=== PATIENT | female | born 1980 | race Caucasian/White ===

== ENCOUNTER 2023-11-18 08:53 | Outpatient (AMB) | payer OTHER, SELFPAY ==
--- NOTE | 2023-11-18 08:56 | A.OFFPC_ITS ---
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 HTN. Hasn't had a primary care in 20 years. Hip Hop Performers Required: No Is last menstrual period known: Yes Last menstrual period: 11/11/23 Allergies amoxicillin Allergy (Severe, Verified 11/18/23 09:02) Rash Medication List - Last Reconciled 11/18/23 by Zainab Valadez PA-C drospirenone-ethinyl estradiol 3-0.02 mg (Lynette (28)) 1 tab PO DAILY Tobacco use date assessed: 11/18/23 Dental Screening Dental Screen Date: 11/18/23 Did you have a dental visit in the last 12 months?: Yes Did you have a dental problem in the last 6 months where you did not have access to dental care?: No Was dental information given to patient?: Patient has dentist 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 She says that she has not had a PCP in over 20 years. She has a history of anxiety, depression, and seasonal allergies She made this appointment because she has been feeling lightheaded on and off for the last year. It will last for about 15 minutes. She states it gets better with juice box and laying down. It happens 1-2 x a month. She states when it happens it she feels off for the rest of the day. She will get associated palpitations with it and feel like her blood pressure is elevated. They checked a few times at work and she states it was about 130/90. She does not get any chest pain with it but just does not feel well. She believes that she is well hydrated and she eats relatively healthy but does state that she has body dysmo rphic disorder and does like to monitor her food. She denies any known history of anemia and does still get regular periods. She has not noticed that the dizziness is related to any sort of hormonal changes or related to any foods. She states that she has been having a ton of anxiety lately, especially at work and wonders if this is a trigger. Pysch: She states she has been on and off medications for 17 years but nothing in the last 15 years. She states she was definitely on zoloft and was maxed out and felt numb. She has been experiencing a hard time controlling her thoughts. She is tearful today and states that she can not even enjoy her engagement because she does not want to plan the wedding with all of her worry and anxiety. She has a hard time falling asleep. 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 States that this has done last year. Family history: Does not know a lot but believes mother had endometrial, u terine or ovarian cancer. [facility] Medical History (Updated 11/18/23 @ 12:45 by Zainab Valadez PA-C) Anemia Skin cancer Depression Anxiety Migraines Asthma Family History (Updated 11/18/23 @ 09:12 by Ellie Sanders CMA) Father HTN (hypertension) Hypercholesteremia Paternal Grandmother HTN (hypertension) Paternal Grandfather HTN (hypertension) Hypercholesteremia Maternal Grandmother Skin cancer Social History (Updated 11/18/23 @ 08:57 by Ellie Sanders CMA) Housing: House Patient Tobacco Use Status: Former Tobacco user Cigarette Packs Per Day: 0.25 Years Smoked: 4 e-Cigarette/Vaping Use: Never Used Second Hand Smoke Exposure: No service: No Current occupational status: employed 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 1. Little interest or pleasure in doing things: more than half the days 2. Feeling down, depressed, or hopeless: more than half the days 3. Trouble falling or staying asleep, or sleeping too much: more than half the days 4. Feeling tired or having little energy: more than half the days 5. Poor appetite or overeating: more than half the days 6. Feeling bad about yourself - or that you are a failure or have let yourself or your family down: nearly every day 7. Trouble concentrating on things, such as reading the newspaper or watching television: more than half the days 8. Moving or speaking so slowly that other people could have noticed. Or the opposite - being so fidgety or restless that you have been moving around a lot more than usual: several days 9. Thoughts that you would be better off or of hurting yourself in some way: more than half the days Total score: 18 Depression Screening Interpretation: Positive Depression Screening Follow-up: Existing condition, New Medication prescribed and Follow-up Visit Requested Depression Screening Done: Yes 10664 - PHQ-9 Billing: Yes Source: Developed by Drs. Masoud Dubon, Aura Nieto, Dhiraj Lui and colleagues, with an educational franck from [employer]. Thrive Questionnaire Date Thrive assessed: 11/18/23 I am a: Patient What is your living situation today?: I have a steady place to live Within the past 12 months, did the food you bought not last and you didn't have the money to get more?: Never true Within the past 12 months, did you worry whether your food would run out before you got money to buy more?: Never true Do you have trouble paying for medicines?: No Do you have trouble getting transportation to medical appointments?: No Do you have trouble paying your heating and electricity bill?: No Do you have trouble taking care of your child, family member or friend?: No Do you have trouble with day-to-day activities such as bathing, preparing meals, shopping, managing finances, etc.?: No Are you currently unemployed and looking for a job?: No Are you interested in more education?: No Please select the resources that you would like help with: None Currently or been in a relationship where the following occur: No concerns reported THRIVE Score: 0 AUDIT C Alcohol Use Questionnaire (AUDIT-C) 1. How often do you have a drink containing alcohol?: 2-3 times a week 2. How many drinks containing alcohol do you have on a typical day when you are drinking?: 1 or 2 3. How often do you have six or more drinks on one occasion?: Never Total Score: 3 KHOI-7 AMB Questionnaire KHOI-7 Date KHOI - 7 assessed: 11/18/23 Feeling nervous, anxious, or on edge: 3 = Nearly every day Not being able to stop or control worryin = Nearly every day Worrying too much about different things: 3 = Nearly every day Trouble relaxin = Nearly every day Being so restless that it is hard to sit still: 2 = More than half the days Becoming easily annoyed or irritable: 2 = More than half the days Feeling afraid as if something awful might happen: 3 = Nearly every day Total KHOI-7 score (0-4 normal; 5-9 mild; 10-14 moderate; 15-21 severe): 19 Source: Developed by Drs. Masoud Dubon, Aura Nieto, Dhiraj Lui and colleagues, with an educational franck from [employer]. KHOI-7 Assessment Billing KHOI-7 Assessment Tool: KHOI-7 Assessment 80373 ACT Questionnaire In the past 4 weeks, how much of the time did your asthma keep you from getting as much done at work, school or at home?: None of the time During the past 4 weeks, how often have you had shortness of breath?: 1-2 times a week During the past 4 weeks, how often did your asthma symptoms wake you up at night or earlier than usual in the morning?: Not at all During the past 4 weeks, how often have you had to use your rescue inhaler or nebulizer medication?: 1-2 times a week How would you rate your asthma control during the past 4 weeks?: Somewhat controlled ACT Interpretation: Positive Score: 19 Physical exam (Primary Care) Vital Signs: Last Vital Signs Temp 98.2 F 11/18/23 09:06 Pulse 69 11/18/23 09:06 Resp 12 11/18/23 09:06 BP 118/70 11/18/23 09:06 Pulse Ox 98 11/18/23 09:06 Oxygen Delivery Method Room Air 11/18/23 09:06 BMI result Body Mass Index 22.8 Tobacco/Smoking Status: Tobacco use Status Tobacco use date assessed 11/18/23 11/18/23 09:01 Patient Tobacco Use Status Former Tobacco user 11/18/23 09:09 e-Cigarette/Vaping Use Never Used 11/18/23 09:01 PHQ-9: PHQ-9 Score PHQ-9: Total score 18 11/18/23 09:42 Depression Screening Interpretation: Positive Depression Screening Follow-up: Existing condition, New Medication prescribed and Follow-up Visit Requested Thrive Assessment: Date of Thrive Assessment Date Thrive assessed 11/18/23 11/18/23 09:16 Currently or been in a relationship where the following occur: No concerns reported Const Orientation/consciousness: patient oriented x3 HENMT Ears: hearing grossly normal bilaterally Neck Thyroid: Thyroid normal Lymphatic: no lymphadenopathy noted Resp Auscultation: clear to auscultation bilaterally Cardio Rate: regular rate Rhythm: regular rhythm Heart sounds: S1 normal heart sound present and S2 normal heart sound present GI Inspection: Yes normal to inspection Palpation (GI): Soft to palpation and Other GI palpation findings present (nontender, no cva tenderness) Auscultation: normoactive bowel sounds Rectal Exam - Female: deferred Skin General skin exam: no rashes or lesions noted Neuro General: patient oriented x3, gait normal and no focal motor deficits Office Procedures EKG Details: EKG today is normal sinus rhythm at a rate 66 beats per minute with nonspecific STT wave abnormalities. No prior study to compare. EKG interpreted by myself. [id number], Complete Assessment and Plan Assessment & Plan (1) Generalized anxiety disorder: Code(s): F41.1 - Generalized anxiety disorder Plan: We will start Lexapro. We discussed risks and benefits and adverse effects of this medication. Follow up in 3-4 weeks. Sooner if needed. (2) Major depression, recurrent: Code(s): F33.9 - Major depressive disorder, recurrent, unspecified Qualifiers: Active/Remission status: currently active Major depression episode severity: mild Qualified Code(s): F33.0 - Major depressive disorder, recurrent, mild Plan: As above. Referral to behavioral health. (3) Insomnia: Code(s): G47.00 - Insomnia, unspecified Qualifiers: Insomnia type: psychophysiologic Qualified Code(s): F51.04 - Psychophysiologic insomnia Plan: As above (4) [place] (iron deficiency anemia): Code(s): D50.9 - Iron deficiency anemia, unspecified Qualifiers: Iron deficiency anemia type: chronic blood loss Qualified Code(s): D50.0 - Iron deficiency anemia secondary to blood loss (chronic) Plan: States that years ago she mildly anemic not currently on supplements. We will check today. (5) Lightheaded: Code(s): R42 - Dizziness and giddiness Plan: EKG as above. Patient orthostatic vital signs WNL. Labs ordered. Holter ordered. Short term follow up arranged. Sooner if anything worsens or changes. Orders: Orders Complete Blood Count Auto Diff Today D50.9 - Iron deficiency anemia, unspecified, F33.9 - Major depressive disorder, recurrent, unspecified, F41.1 - Generalized anxiety disorder, G47.00 - Insomnia, unspecified, R42 - Dizziness and giddiness Comprehensive [place]. Panel Fast Today D50.9 - Iron deficiency anemia, unspecified, F33.9 - Major depressive disorder, recurrent, unspecified, F41.1 - Generalized anxiety disorder, G47.00 - Insomnia, unspecified, R42 - Dizziness and giddiness IRON PROFILE Today D50.9 - Iron deficiency anemia, unspecified, F33.9 - Major depressive disorder, recurrent, unspecified, F41.1 - Generalized anxiety disorder, G47.00 - Insomnia, unspecified, R42 - Dizziness and giddiness Lipid Panel Today D50.9 - Iron deficiency anemia, unspecified, F33.9 - Major depressive disorder, recurrent, unspecified, F41.1 - Generalized anxiety disorder, G47.00 - Insomnia, unspecified, R42 - Dizziness and giddiness ECG holter monitor 24 hour Today R42 - Dizziness and giddiness MM screening mammo BI Today Z12.31 - Encounter for screening mammogram for m alignant neoplasm of breast Ferritin Today D50.9 - Iron deficiency anemia, unspecified, F33.9 - Major depressive disorder, recurrent, unspecified, F41.1 - Generalized anxiety disorder, G47.00 - Insomnia, unspecified, R42 - Dizziness and giddiness TSH reflex Free T4 Today D50.9 - Iron deficiency anemia, unspecified, F33.9 - Major depressive disorder, recurrent, unspecified, F41.1 - Generalized anxiety disorder, G47.00 - Insomnia, unspecified, R42 - Dizziness and giddiness AMB EKG-In Office Today R42 - Dizziness and giddiness Referrals Behavioral Health Referral F33.9 - Major depressive disorder, recurrent, unspecified, F41.1 - Generalized anxiety disorder, G47.00 - Insomnia, unspecified Medications: New cetirizine (Zyrtec) 10 mg PO DAILY 90 tabs 1RF escitalopram oxalate (Lexapro) 10 mg PO DAILY 90 tabs 0RF Coding Level of Care Code New Pt Level 4 (40420) Complex EM visit Add On G2211 Diagnoses Generalized anxiety disorder F41.1 Mild episode of recurrent major depressive disorder F33.0 Active/Remission status: currently active Major depression episode severity: mild Psychophysiological insomnia F51.04 Insomnia type: psychophysiologic Iron deficiency anemia due to chronic blood loss D50.0 Iron deficiency anemia type: chronic blood loss Lightheaded R42 CPT Codes EKG - CPT: 86080-[id number], Complete ([id number]) Additional Codes KHOI-7 Assessment Billing - KHOI-7 Assessment Tool: KHOI-7 Assessment 84311 ([id number])
[2023-11-18 09:06] VITALS: BP 118/70; PULSE 69; RESP 12; TEMP 36.8; O2SAT 98; BMI 22.8
== END 2023-11-18 10:06 | disposition home or self-care (01) ==
PROVIDERS: PCP Physician Assistant; Visit Provider Physician Assistant
DX: F41.1 Generalized anxiety disorder (principal); F33.0 Major depressive disorder, recurrent, mild; F51.04 Psychophysiologic insomnia; D50.0 Iron deficiency anemia secondary to blood loss (chronic); R42 Dizziness and giddiness
CPT/HCPCS: 93000; 96127; 99204

== ENCOUNTER 2023-12-22 12:52 | Outpatient (AMB) | payer OTHER, SELFPAY ==
--- NOTE | 2023-12-22 12:58 | A.OFFPC_ITS ---
Vital Signs 12/22/23 13:05 12/22/23 14:20 12/22/23 14:20 12/22/23 14:21 Height 5 ft 0.63 in Weight 124 lb 4 oz BMI 23.8 BP 134/84 133/74 134/80 134/84 Blood Pressure Location Rt brachial Lt brachial Lt brachial Lt brachial Position Sitting Supine Sitting Standing Respiration 14 Pulse 93 83 88 Pulse Source Pulse Oximeter Pulse Oximeter Pulse Oximeter Temp 98.1 F Temp Source Oral Pulse Oximetry (%) 99 Oxygen Delivery Method Room Air Intake Visit Reasons: dizzy/pressure 142/102 Intake Note: Dizziness and elevated blood pressure. Symptoms started today at work and her bp was taken it was 142/101. Left arm was painful, she threw up. Has anxiety and if feeling anxious. Stopped the Lexapro because of 5 pound weight gain in a mohth. Bruising for no reason. Allergies amoxicillin Allergy (Severe, Verified 12/22/23 13:00) Rash Medication List - Last Reconciled 12/22/23 by Zainab Valadez PA-C cetirizine (Zyrtec) 10 mg PO DAILY drospirenone-ethinyl estradiol 3-0.02 mg (Lynette (28)) 1 tab PO DAILY Tobacco use date assessed: 11/18/23 Dental Screening Dental Screen Date: 11/18/23 HPI dizzy/pressure 142/102 HPI Details Patient is a 43-year-old female who presents today for a problem visit. She is relatively new to me. She called today because she was experiencing feeling lightheaded with an elevated blood pressure. She states that she was at work today looking at the computer when she noticed her vision started to get blurry. It caused her to feel lightheaded and slightly like she was spinning. She states that she went to get up and it got worse and she felt more lightheaded and nauseous. She has had down for a few minutes and thought she was okay but then got up again in the symptoms worsened. She had to vomit and she states after she vomited they checked her blood pressure at work and it was 142/102. They told her to come in to be seen. Her blood pressure today in the office is 134/84. She denies any chest pain, shortness of breath or palpitations. She does get headaches but does not currently have a headache. She did have somewhat of an increased pressure while she was feeling sick. Denies any abdominal pain, diarrhea or constipation. She has not been sick recently. No swollen lymph nodes, fevers or chills. She does not believe that she was dehydrated. It did not appear to be related to food. She feels like she is also bruising very easily. Denies any bruising around the bra or pant line. She denies any rashes. The bruises are randomly on her hands, arms and legs. She states sometimes she will just wake up with bruises. She does believe she has a normal cycle with her menses but for the 1st couple days it is very heavy. There has been no change in this. She does have some intermittent bleeding with intercourse. She states that it can be a lot of blood similar to her period. -at our initial visit she did complain o f similar symptoms. She did have a Holter monitor and is scheduled for the middle of next month. She did have some labs done at [facility] and states it was her cholesterol and thyroid which were normal. She did not get the rest of the labs. She recently was also seen and started on Lexapro for anxiety and depression. She states it caused her to gain weight so she discontinued it but does think that she would benefit for medication for her anxiety. [facility] Medical History (Updated 12/22/23 @ 13:40 by Zainab Valadez PA-C) Anemia Skin cancer Depression Anxiety Migraines Asthma Family History (Updated 11/18/23 @ 09:12 by Ellie Sanders CMA) Father HTN (hypertension) Hypercholesteremia Paternal Grandmother HTN (hypertension) Paternal Grandfather HTN (hypertension) Hypercholesteremia Maternal Grandmother Skin cancer Social History (Updated 11/18/23 @ 08:57 by Ellie Sanders CMA) Housing: House Patient Tobacco Use Status: Former Tobacco user Cigarette Packs Per Day: 0.25 Years Smoked: 4 e-Cigarette/Vaping Use: Never Used Second Hand Smoke Exposure: No service: No Current occupational status: employed 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 Current occupational exposures/hazards: No Cognitive needs: No Hearing needs: No Vision needs: No Questionnaire Thrive Questionnaire Date Thrive assessed: 11/18/23 I am a: Patient What is your living situation today?: I choose not to answer this question Within the past 12 months, did the food you bought not last and you didn't have the money to get more?: I choose not to answer this question Within the past 12 months, did you worry whether your food would run out before you got money to buy more?: I choose not to answer this question Do you have trouble paying for medicines?: I choose not to answer this question Do you have trouble getting transportation to medical appointments?: I choose not to answer this question Do you have trouble paying your heating and electricity bill?: I choose not to answer this question Do you have trouble taking care of your child, family member or friend?: I choose not to answer this question Do you have trouble with day-to-day activities such as bathing, preparing meals, shopping, managing finances, etc.?: I choose not to answer this question Are you currently unemployed and looking for a job?: I choose not to answer this question Are you interested in more education?: I choose not to answer this question Please select the resources that you would like help with: Transportation and None Currently or been in a relationship where the following occur: I choose not to answer THRIVE Score: 0 AUDIT C Alcohol Use Questionnaire (AUDIT-C) 1. How often do you have a drink containing alcohol?: 2-3 times a week 2. How many drinks containing alcohol do you have on a typical day when you are drinking?: 3 or 4 3. How often do you have six or more drinks on one occasion?: Never Total Score: 4 KHOI-7 AMB Questionnaire KHOI-7 Date KHOI - 7 assessed: 11/18/23 Feeling nervous, anxious, or on edge: 3 = Nearly every day Not being able to stop or control worryin = Not at all Worrying too much about different things: 0 = Not at all Trouble relaxin = Not at all Being so restless that it is hard to sit still: 0 = Not at all Becoming easily annoyed or irritable: 0 = Not at all Feeling afraid as if something awful might happen: 0 = Not at all Total KHOI-7 score (0-4 normal; 5-9 mild; 10-14 moderate; 15-21 severe): 3 Source: Developed by Drs. Masoud Dubon, Aura Nieto, Dhiraj Lui and colleagues, with an educational franck from [employer]. KHOI-7 Assessment Billing KHOI-7 Assessment Tool: KHOI-7 Assessment 53861 Physical exam (Primary Care) Vital Signs: Last Vital Signs Temp 98.1 F 12/22/23 13:05 Pulse 93 12/22/23 13:05 Resp 14 12/22/23 13:05 BP 134/84 12/22/23 13:05 Pulse Ox 99 12/22/23 13:05 Oxygen Delivery Method Room Air 12/22/23 13:05 BMI result Body Mass Index 23.8 Tobacco/Smoking Status: Tobacco use Status Tobacco use date assessed 11/18/23 12/22/23 12:59 Patient Tobacco Use Status Former Tobacco user 12/22/23 12:59 e-Cigarette/Vaping Use Never Used 12/22/23 12:59 Thrive Assessment: Date of Thrive Assessment Date Thrive assessed 11/18/23 12/22/23 12:59 Currently or been in a relationship where the following occur: I choose not to answer Const Orientation/consciousness: patient oriented x3 HENMT Ears: hearing grossly normal bilaterally Neck Thyroid: Thyroid normal Lymphatic: no lymphadenopathy noted Resp Auscultation: clear to auscultation bilaterally Cardio Rate: regular rate Rhythm: regular rhythm Heart sounds: S1 normal heart sound present and S2 normal heart sound present GI Inspection: Yes normal to inspection Palpation (GI): Soft to palpation and Other GI palpation findings present (nontender, no cva tenderness) Auscultation: normoactive bowel sounds Rectal Exam - Female: deferred Skin General skin exam: no rashes or lesions noted Neuro General: patient oriented x3, gait normal and no focal motor deficits Office Procedures EKG Details: EKG normal sinus rhythm at a rate of 84 beats per minute with nonspecific STT wave abnormalities. [id number], Complete Assessment and Plan Assessment & Plan (1) Lightheaded: Code(s): R42 - Dizziness and giddiness Plan: Orthostatic WNL. EKG today in office is normal sinus rhythm at a rate of 84 beats per minute with nonspecific STT wave abnormalities. No significant change from prior study. EKG interpreted by myself and Dr. Craig. Labs today. C urrently feeling better and well. Advised to complete the Holter. Given that this has been somewhat persistent since this summer I will also check an MRI given her spinning sensation with head pressure and vision changes. She does appear grossly neurologically intact today.. (2) Irregular intermenstrual bleeding: Code(s): N92.1 - Excessive and frequent menstruation with irregular cycle Plan: Ultrasound ordered. Labs ordered. Advised to follow up with OBGYN (3) Easy bruising: Code(s): R23.3 - Spontaneous ecchymoses Plan: Labs ordered. Orders: Orders US pelvic and transvaginal Today N92.1 - Excessive and frequent menstruation with irregular cycle, R23.3 - Spontaneous ecchymoses, R42 - Dizziness and giddiness Prothrombin Time INR Today N92.1 - Excessive and frequent menstruation with irregular cycle, R23.3 - Spontaneous ecchymoses, R42 - Dizziness and giddiness MR head/brain wo con Today G43.909 - Migraine, unspecified, not intractable, without status migrainosus, R42 - Dizziness and giddiness AMB EKG-In Office Today R42 - Dizziness and giddiness HCG Quantitative Today N92.1 - Excessive and frequent menstruation with irregular cycle, R42 - Dizziness and giddiness Medications: New buspirone 5 mg PO TID 90 tabs 3RF Coding Level of Care Code Est Pt Level 4 (72519) Complex EM visit Add On G2211 Diagnoses Lightheaded R42 Irregular intermenstrual bleeding N92.1 Easy bruising R23.3 CPT Codes EKG - CPT: 20992-[id number], Complete ([id number]) Additional Codes KHOI-7 Assessment Billing - KHOI-7 Assessment Tool: KHOI-7 Assessment 56989 ([id number])
[2023-12-22 13:05] VITALS: BP 134/84; PULSE 93; RESP 14; TEMP 36.7; O2SAT 99; BMI 23.8
[2023-12-22 14:20] VITALS: BP 133/74; BP 134/80; PULSE 83; PULSE 88
[2023-12-22 14:21] VITALS: BP 134/84
== END 2023-12-22 14:17 | disposition home or self-care (01) ==
PROVIDERS: PCP Physician Assistant; Visit Provider Physician Assistant
DX: R42 Dizziness and giddiness (principal); N92.1 Excessive and frequent menstruation with irregular cycle; R23.3 Spontaneous ecchymoses

== ENCOUNTER → 2023-12-22 12:52 | Outpatient (BNVA) | payer OTHER, SELFPAY | PROVIDERS: PCP Physician Assistant; Visit Provider Physician Assistant | DX: R42 Dizziness and giddiness (principal); N92.1 Excessive and frequent menstruation with irregular cycle; R23.3 Spontaneous ecchymoses | CPT/HCPCS: 93005; 96127 ==

== ENCOUNTER 2024-01-28 18:15 | Outpatient (REF) | payer OTHER, SELFPAY ==
--- NOTE | ~2024-01-28 | MR_ITS ---
EXAMINATION: MR BRAIN WITHOUT CONTRAST CLINICAL INFORMATION: Dizziness and giddiness. COMPARISON: None available. TECHNIQUE: MRI of the brain was attempted using routine sequences without contrast. Limited evaluation secondary to patient stating hot sensation in eyes during the exam. Only sagittal T1-weighted imaging was obtained. FINDINGS: The ventricles are normal in morphology and size. No demonstrated abnormal mass effect. No midline shift. Normal appearance of the pituitary gland. Normal positioning of the cerebellar tonsils. Normal, homogeneous marrow signal. MR/MR head/brain wo con IMPRESSION: Limited exam. No demonstrated abnormal mass effect. Electronically signed by: Dread Yadav DO 03/08/2024 05:57 AM EST
== END 2024-01-28 18:16 | disposition home or self-care (01) ==
LOC: HO.MRI 18:15
PROVIDERS: PCP Physician Assistant; Visit Provider Physician Assistant
DX: G43.909 Migraine, unspecified, not intractable, without status migrainosus (principal); R42 Dizziness and giddiness
CPT/HCPCS: 70551

== ENCOUNTER 2024-06-07 14:58 | Outpatient (AMB) | payer OTHER, SELFPAY ==
--- NOTE | 2024-06-07 15:07 | A.OFFPC_ITS ---
Vital Signs 06/07/24 15:13 Height 5 ft 0.63 in Weight 131 lb 8 oz BMI 25.1 BP 104/72 Blood Pressure Location Rt brachial Position Sitting Respiration 12 Pulse 84 Pulse Source Pulse Oximeter Temp 97.9 F Temp Source Oral Pulse Oximetry (%) 95 Oxygen Delivery Method Room Air Intake Visit Reasons: Hernia Intake Note: Possible hernia in the groin area. Painful urination and painful when coughing. Sxs started a couple weeks ago. Nurseryman Assistant Required: No Allergies amoxicillin Allergy (Severe, Verified 06/07/24 15:12) Rash Medication List - Last Reconciled 06/07/24 by Zainab Valadez PA-C cetirizine (Zyrtec) 10 mg PO DAILY drospirenone-ethinyl estradiol 3-0.02 mg (Lynette (28)) 1 tab PO DAILY Tobacco use date assessed: 11/18/23 Dental Screening Dental Screen Date: 11/18/23 HPI Hernia HPI Details Patient is a 43-year-old female who presents today with complaints of lower abdominal pain. She is concerned that she could have a possible hernia. She has been having LLQ pain x 2 weeks. She states that it is worse with cough, bearing down and sneezing. She states that prior to the abdominal pain she did have cold symptoms that caused her to do a lot of coughing and she thinks this when she triggered a hernia. She states that the pain is right over the left pubic area and across the lower abdomen. She denies any nausea, vomiting, diarrhea. No previous abdominal surgeries. No urinary symptoms, flank pain, fevers or chills. Last menstrual period ended yesterday. [facility] Medical History (Updated 06/07/24 @ 15:34 by Zainab Valadez PA-C) Anemia Skin cancer Depression Anxiety Migraines Asthma Family History Father HTN (hypertension) Hypercholesteremia Paternal Grandmother HTN (hypertension) Paternal Grandfather HTN (hypertension) Hypercholesteremia Maternal Grandmother Skin cancer Social History (Updated 06/07/24 @ 15:17 by Ellie Sanders CMA) Housing: House Alcohol intake: current Patient Tobacco Use Status: Former Tobacco user Cigarette Packs Per Day: 0.25 Years Smoked: 4 e-Cigarette/Vaping Use: Never Used Second Hand Smoke Exposure: No service: No Current occupational status: employed 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 Current occupational exposures/hazards: No Cognitive needs: No Hearing needs: No Vision needs: No Questionnaire Thrive Questionnaire Date Thrive assessed: 11/18/23 I am a: Patient What is your living situation today?: I choose not to answer this question Within the past 12 months, did the food you bought not last and you didn't have the money to get more?: I choose not to answer this question Within the past 12 months, did you worry whether your food would run out before you got money to buy more?: I choose not to answer this question Do you have trouble paying for medicines?: I choose not to answer this question Do you have trouble getting transportation to medical appointments?: I choose not to answer this question Do you have trouble paying your heating and electricity bill?: I choose not to answer this question Do you have trouble taking care of your child, family member or friend?: I choose not to answer this question Do you have trouble with day-to-day activities such as bathing, preparing meals, shopping, managing finances, etc.?: I choose not to answer this question Are you currently unemployed and looking for a job?: I choose not to answer this question Are you interested in more education?: I choose not to answer this question Please select the resources that you would like help with: None Currently or been in a relationship where the following occur: I choose not to answer THRIVE Score: 0 AUDIT C Alcohol Use Questionnaire (AUDIT-C) 1. How often do you have a drink containing alcohol?: Never Total Score: 0 KHOI-7 AMB Questionnaire KHOI-7 Date KHOI - 7 assessed: 11/18/23 Feeling nervous, anxious, or on edge: 0 = Not at all Not being able to stop or control worryin = Not at all Worrying too much about different things: 0 = Not at all Trouble relaxin = Not at all Being so restless that it is hard to sit still: 0 = Not at all Becoming easily annoyed or irritable: 0 = Not at all Feeling afraid as if something awful might happen: 0 = Not at all Total KHOI-7 score (0-4 normal; 5-9 mild; 10-14 moderate; 15-21 severe): 0 Source: Developed by Drs. Masoud Dubon, Aura Nieto, Dhiraj Lui and colleagues, with an educational franck from [employer]. Physical exam (Primary Care) Vital Signs: Last Vital Signs Temp 97.9 F 06/07/24 15:13 Pulse 84 06/07/24 15:13 Resp 12 06/07/24 15:13 BP 104/72 06/07/24 15:13 Pulse Ox 95 06/07/24 15:13 Oxygen Delivery Method Room Air 06/07/24 15:13 BMI result Body Mass Index 25.1 Tobacco/Smoking Status: Tobacco use Status Tobacco use date assessed 11/18/23 06/07/24 15:08 Patient Tobacco Use Status Former Tobacco user 06/07/24 15:17 e-Cigarette/Vaping Use Never Used 06/07/24 15:17 Thrive Assessment: Date of Thrive Assessment Date Thrive assessed 11/18/23 06/07/24 15:08 Currently or been in a relationship where the following occur: I choose not to answer Const Orientation/consciousness: patient oriented x3 HENMT Ears: hearing grossly normal bilaterally Neck Thyroid: Thyroid normal Lymphatic: no lymphadenopathy noted Resp Auscultation: clear to auscultation bilaterally Cardio Rate: regular rate Rhythm: regular rhythm Heart sounds: S1 normal heart sound present and S2 normal heart sound present GI Inspection: Yes normal to inspection Palpation (GI): Soft to palpation and Tenderness to palpation present (GI) in the LLQ and suprapubicly Auscultation: normoactive bowel sounds Rectal Exam - Female: deferred Skin General skin exam: no rashes or lesions noted Neuro General: patient oriented x3, gait normal and no focal motor deficits Coding Level of Care Code Est Pt Level 4 (13936) Complex EM visit Add On G2211 Diagnoses LLQ abdominal pain R10.32 Assessment & Plan Assessment & Plan (1) LLQ abdominal pain: Code(s): R10.32 - Left lower quadrant pain Category: Medical Plan: There is a slight, reproducible bulge in the left inguinal region. The abdominal exam does elicit some discomfort in the left lower quadrant but this is not an acute abdomen. We reviewed signs and symptoms of an acute abdomen that would require emergent medical treatment. CT and labs ordered. UA negative. Referral to General surgery. Advised to follow up if anything worsens or changes. Patient understands and agrees with the plan. Orders: Orders AMB Urinalysis Dipstick Today D50.0 - Iron deficiency anemia secondary to blood loss (chronic), R10.32 - Left lower quadrant pain, R30.9 - Painful micturition, unspecified Complete Blood Count Auto Diff Today R10.32 - Left lower quadrant pain Comprehensive Met. Panel Today R10.32 - Left lower quadrant pain Erythrocyte Sedimentation Rate Today R10.32 - Left lower quadrant pain CT abdomen pelvis w IV con Today R10.32 - Left lower quadrant pain Referrals General Surgery Referral K40.90 - Unilateral inguinal hernia, without obstr uction or gangrene, not specified as recurrent
[2024-06-07 15:13] VITALS: BP 104/72; PULSE 84; RESP 12; TEMP 36.6; O2SAT 95; BMI 25.1
== END 2024-06-07 15:38 | disposition home or self-care (01) ==
LOC: HO.HMCFM 14:59
PROVIDERS: PCP Physician Assistant; Visit Provider Physician Assistant
DX: R10.32 Left lower quadrant pain (principal)

== ENCOUNTER → 2024-06-07 14:58 | Outpatient (BNVA) | payer OTHER, SELFPAY | PROVIDERS: PCP Physician Assistant; Visit Provider Physician Assistant ==

== ENCOUNTER 2024-06-07 15:43 | Outpatient (REF) | payer OTHER, SELFPAY ==
[2024-06-07 18:15] LABS: MANUAL DIFF FLAG NO
[2024-06-07 18:25] LABS: Basophils Absolute Auto 0.1 X10*3/uL (0.0-0.2); Basophils Percent Auto 0.9 % (0-2); Eosinophils Absolute Auto 0.4 X10*3/uL (0.0-0.4); Eosinophils Percent Auto 4.7 % (0-4); Hematocrit 41.3 % (37.0-47.0); Hemoglobin 13.8 g/dl (12.0-16.0); Imm Gran Abs Auto 0.04 X10*3/uL (0.00-0.03); Imm Gran Pct Auto 0.5 % (0.0-0.4); Lymphocytes Absolute Auto 3.9 X10*3/uL (1.2-4.9); Lymphocytes Percent Auto 49.9 % (20-40); Mean Corpuscular HGB Conc 33.4 g/dl (31.0-35.0); Mean Corpuscular Hemoglobin 31.1 pg (27.0-33.0); Mean Platelet Volume 9.6 fL (9.4-12.3); Monocytes Absolute Auto 0.5 X10*3/uL (0.1-1.2); Monocytes Percent Auto 6.8 % (2-11); Neutrophils Absolute Auto 2.9 x10*3/uL (2.0-8.3); Neutrophils Percent Auto 37.2 % (45-73); Platelet Count 357 X10*3/uL (160-400); Red Blood Count 4.44 X10*6/uL (4.20-5.50); Red Cell Distribution Width 12.6 % (11.0-16.0); White Blood Count 7.8 X10*3/uL (4.8-10.8)
[2024-06-07 18:44] LABS: Alanine Aminotransferase 24 U/L (0-31); Albumin Level 4.1 g/dL (3.5-5.0); Alkaline Phosphatase 70 U/L (39-117); Anion Gap 9 (12-20); Aspartate Amino Transferase 22 U/L (5-31); Bilirubin Total 0.3 mg/dL (0.0-1.0); Blood Urea Nitrogen 14 mg/dL (9-16); Calcium 9.2 mg/dL (8.4-10.2); Carbon Dioxide 25 mmol/L (22-29); Chloride 108 mmol/L (96-108); Estimated Glomerular Filt Rate > 60; Glucose Random 84 mg/dL (60-115); Potassium 4.2 mmol/L (3.3-5.1); Sodium 138 mmol/L (135-145)
[2024-06-07 19:10] LABS: Erythrocyte Sedimentation Rate 6 MM/HR (0-20)
[2024-06-08 07:30] LABS: Appearance Urine Turbid; Color Urine Yellow; Glucose Urine UA Negative (Negative); Leukocyte Esterase Urine Negative (Negative); Nitrite Urine Negative (Negative); PH 5.5 (5.0-9.0); UMIC TRIGGER UACC YES; Urine Blood Small (1+) (Negative); Urine Ketones Negative (Negative); Urine Protein Negative (Neg-Trace)
[2024-06-08 07:44] LABS: Bacteria Urine 1+ (None Seen); Hyaline Casts Urine 0-2 /LPF (0-2); RBC Urine 0-2 /HPF (0-2); WBC Urine 0-5 /HPF (0-5)
== END 2024-06-07 15:44 | disposition home or self-care (01) ==
LOC: HO.WFDLDS 15:43
PROVIDERS: Visit Provider Physician Assistant
DX: R10.32 Left lower quadrant pain (principal)
CPT/HCPCS: 36415; 80053; 81001; 85025; 85652; 87086